=== PATIENT | male | born 1995 | race Caucasian/White ===

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

== ENCOUNTER → 2017-10-24 | Outpatient (CLI) | payer OTHER | LOC: BMCIMAGING 12:11 | PROVIDERS: ATTEND Podiatrist Foot & Ankle Surgery | DX: M79.5 Residual foreign body in soft tissue (principal) ==

== ENCOUNTER 2018-07-10 18:48 | Emergency (ER) | payer OTHER ==
[2018-07-10] MEDS ORDERED: NS 1,000 ML IV ONE (19:02)
--- NOTE | 2018-07-10 19:02 | EDPHY ---
H & P Stated Complaint: 2pm ingested mushrooms/seizure around 6pm/hit head Time Seen by Provider: 07/10/18 19:02 HPI/ROS: CHIEF COMPLAINT: Seizure HISTORY OF PRESENT ILLNESS: The patient presents to the ED after a witnessed seizure. The patient reportedly had taken hallucinogenic mushrooms earlier today. 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 The patient has remote history of a seizure as a young child. The patient does report that he is a heavy drinker and has approximately 5 drinks a day. He has been cutting back over the past several days secondary to finals. The patient denies significant traumatic complaints currently. The patient denies any additional co ingestion. The patient denies any acute numbness or weakness. REVIEW OF SYSTEMS: A comprehensive 10 point review of systems is otherwise negative aside from elements mentioned in the history of present illness. Source: Patient - Personal History Current Tetanus Diphtheria and Acellular Pertussis (TDAP): Yes - Medical/Surgical History Hx Asthma: No Hx Chronic Respiratory Disease: No Hx Diabetes: No Hx Cardiac Disease: No Hx Renal Disease: No Hx Cirrhosis: No Hx Alcoholism: No Hx HIV/AIDS: No Hx Splenectomy or Spleen Trauma: No Other PMH: ortho (wrist, clavicle) seizure hx since childhood - Social History Smoking Status: Never smoked - Physical Exam Exam: General Appearance: Alert, no distress Head: Atraumatic Eyes: Pupils equal, round, reactive ENT, Mouth: No hemotympanum, no oral trauma, no tongue bite Neck: Nontender, trachea midline Respiratory: No chest wall tender, no subcutaneous air, lungs clear bilaterally Cardiovascular: Regular rate and rhythm Abdomen: Abdomen is soft and nontender, pelvis stable Skin: No lacerations, No abrasion Back: No midline T/L/S pain Extremities: Nontender, full range of motion Neurological: A&Ox3, normal motor function, normal sensory exam Constitutional: Initial Vital Signs Temperature (C) 36.4 C 07/10/18 18:56 Heart Rate 73 07/10/18 18:56 Respiratory Rate 18 07/10/18 18:56 Blood Pressure 125/78 H 18 18:56 O2 Sat (%) 94 07/10/18 18:56 O2 Delivery Mode Room Air Allergies/Adverse Reactions: No Known Allergies Allergy (Verified 07/10/18 18:55) Home Medications: Medication Instructions Recorded NK [No Known Home Meds] 06/03/16 Medical Decision Making - Diagnostics EKG Interpretation: EKG: Complete interpretation has been separately recorded in the [facility] archive. Summary impression: Sinus rhythm, rate 58 Imaging Results: Imaging Impressions Head CT 07/10/18 20:21 Impression: 1. Band of decreased attenuation left parietal lobe extending to the medial aspect of the left occipital lobe with possible communication with the occipital horn left lateral ventricle. 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 2. Nonspecific maxillary and ethmoid sinus disease. If symptoms worsen, additional imaging may be necessary. Findings discussed with Marvin Andrea M.D. at 20:55 hour, 07/10/2018. ED Course/Re-evaluation: Patient presents the ED after witnessed seizure. The patient does have a history of heavy alcohol consumption and recently has been cutting back. This for a while could be precipitated by alcohol withdrawal. The patient's laboratory studies are unremarkable. The patient has no evidence of an acute headache or clinical evidence of intracranial hemorrhage. 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 At this point time I do feel the patient can be discharged home as he has had no recurrent seizure activity in the ED. The patient will be discharged home with customary seizure aftercare instructions. The patient is advised to follow up with Neurology for further testing consideration of MRI scanning Differential Diagnosis: Differential diagnosis considered includes intracranial hemorrhage, seizure, medication side effect, alcohol withdrawal, syncope - Data Points Laboratory Results: Laboratory Results 07/10/18 19:20 07/10/18 19:20 07/10/18 07/10/18 19:20 19:20 WBC 5.82 10^3/uL 10^3/uL (3.80-9.50) RBC 5.29 10^6/uL 10^6/uL (4.40-6.38) Hgb 16.3 g/dL g/dL (13.7-17.5) Hct 46.9 % % (40.0-51.0) MCV 88.7 fL fL (81.5-99.8) MCH 30.8 pg pg (27.9-34.1) MCHC 34.8 g/dL g/dL (32.4-36.7) RDW 12.6 % % (11.5-15.2) Plt Count 218 10^3/uL 10^3/uL (150-400) MPV 9.7 fL fL (8.7-11.7) Neut % (Auto) 43.3 % % (39.3-74.2) Lymph % (Auto) 40.5 % % (15.0-45.0) [place] % (Auto) 5.7 % % (4.5-13.0) Eos % (Auto) 9.3 % H % (0.6-7.6) Baso % (Auto) 1.0 % % (0.3-1.7) Nucleat RBC Rel Count 0.0 % % (0.0-0.2) Absolute Neuts (auto) 2.52 10^3/uL 10^3/uL (1.70-6.50) Absolute Lymphs (auto) 2.36 10^3/uL 10^3/uL (1.00-3.00) Absolute Monos (auto) 0.33 10^3/uL 10^3/uL (0.30-0.80) Absolute Eos (auto) 0.54 10^3/uL H 10^3/uL (0.03-0.40) Absolute Basos (auto) 0.06 10^3/uL 10^3/uL (0.02-0.10) Absolute Nucleated RBC 0.00 10^3/uL 10^3/uL (0-0.01) Immature Gran % 0.2 % % (0.0-1.1) Immature Gran # 0.01 10^3/uL 10^3/uL (0.00-0.10) Sodium 140 mEq/L mEq/L (135-145) Potassium 4.3 mEq/L mEq/L (3.5-5.2) Chloride 109 mEq/L mEq/L (97-110) Carbon Dioxide 21 mEq/l L mEq/l (22-31) Anion Gap 10 mEq/L mEq/L (6-14) BUN 10 mg/dL mg/dL (7-23) Creatinine 1.0 mg/dL mg/dL (0.7-1.3) Estimated GFR > 60 Glucose 97 mg/dL mg/dL (70-100) Calcium 9.2 mg/dL mg/dL (8.5-10.4) Medications Given: Discontinued Medications Sodium Chloride (Ns) 1,000 mls @ 0 mls/hr IV ONCE ONE; Wide Open PRN Reason: Protocol Stop: 07/10/18 19:03 Last Admin: 07/10/18 19:20 Dose: 1,000 mls Departure - Departure Disposition: Home, Routine, Self-Care Clinical Impression: Seizure disorder Condition: Good Instructions: Epilepsy (ED) Additional Instructions: 1. No driving, dangerous activities such as riding a ski lift, swimming in a pool or other behavior that could put you or someone else at risk in the event of a recurrent seizure. You will need to be cleared by a neurologist to resume these activities. 2. Please return to the ED for recurrent seizure, headache, numbness, weakness, altered mental status or other concerns. 3. Please follow up with neurologist you have been referred to this week to schedule a follow-up appointment. 4. You have an abnormal head CT scan which is likely the result of vague congenital event however further workup is warranted including the possibility of MRI testing. It is imperative you contact the neurologist you have been referred to to schedule a follow-up visit within the week. Please call their office tomorrow. If you have any problems making a follow-up appointment contact the emergency department at in asked to speak to the food and beverage operations manager or attending ED physician. Referrals: Guillermo Singh MD [Medical Doctor] - As per Instructions
[2018-07-10 19:37] LABS: PLATELET COUNT 218 10^3/uL (150-400)
--- NOTE | 2018-07-10 19:54 | CPEKG ---
Test Reason : OPEN Blood Pressure : / mmHG Vent. Rate : 058 BPM Atrial Rate : 057 BPM P-R Int : 140 ms QRS Dur : 086 ms QT Int : 422 ms P-R-T Axes : 071 061 054 degrees QTc Int : 415 ms Sinus rhythm Confirmed by Marvin Andrea ([id number]) on 07/10/2018 7:53:57 PM Referred By: Confirmed By:Marvin Andrea
[2018-07-10 21:19] VITALS: BP 122/67
== END 2018-07-10 21:32 | disposition home or self-care (01) ==
DX: G40.909 Epilepsy, unspecified, not intractable, without status epilepticus (principal); F19.90 Other psychoactive substance use, unspecified, uncomplicated; F10.230 Alcohol dependence with withdrawal, uncomplicated